=== PATIENT | female | born 1940 | race Hispanic/Latino ===

== ENCOUNTER → 2025-01-03 07:52 | Outpatient (REF) | payer MEDICARE, SELFPAY | LOC: RCS 07:52 | PROVIDERS: ATTENDING PHYSICIAN Family Medicine | DX: R93.89 Abnormal findings on diagnostic imaging of other specified body structures (principal); R26.89 Other abnormalities of gait and mobility; F33.0 Major depressive disorder, recurrent, mild | CPT/HCPCS: 93225; 93226 ==

== ENCOUNTER → 2025-01-10 14:32 | Outpatient (REF) | payer MEDICARE, SELFPAY | LOC: RAD 14:32 | PROVIDERS: ATTENDING PHYSICIAN Family Medicine | DX: R93.89 Abnormal findings on diagnostic imaging of other specified body structures (principal); F01.B11 Vascular dementia, moderate, with agitation; R09.89 Other specified symptoms and signs involving the circulatory and respiratory systems | CPT/HCPCS: 93306; 93880 ==